=== PATIENT | female | born 1955 | race Caucasian/White ===

== ENCOUNTER → 2022-03-23 | Outpatient (CLI) | payer MEDICARE ==
--- NOTE | 2022-03-23 14:29 | Diagnostic Imaging Report ---
PROCEDURE: CT urinary tract, rule out kidney stone. TECHNIQUE: Multiple contiguous axial images were obtained through the abdomen and pelvis without the use of intravenous contrast. Auto Exposure Controls were utilized during the CT exam to meet ALARA standards for radiation dose reduction. INDICATION: Right flank pain and hematuria. Patient has history of kidney stones. No prior studies are available for comparison. FINDINGS: Lung bases are clear of acute infiltrates. The liver and gallbladder are unremarkable. No biliary duct dilatation is seen. The pancreas and spleen are unremarkable. No adrenal mass is detected. There is a punctate nonobstructing calculus in the upper pole of the left kidney. Right kidney contains several nonobstructing calculi, largest in the lower pole measuring 8 mm. No definite ureteral calculi or hydronephrosis is identified. Aorta is heavily calcified but nonaneurysmal. Bowel loops are normal in caliber. There is no obstruction. There is diverticulosis of the sigmoid, but no evidence of acute diverticulitis. No free fluid or fluid collection is seen. No inflammatory changes are identified. The uterus and bladder are unremarkable. IMPRESSION: 1. Nonobstructing bilateral nephrolithiasis with the greatest stone burden in the right kidney. No ureteral calculi or hydronephrosis is detected. 2. Uncomplicated diverticulosis. Dictated by: Dictated on workstation # [id number]
== END ==
LOC: RAD FS 12:55
PROVIDERS: ATTEND Family Medicine
DX: N20.0 Calculus of kidney (principal); K57.30 Diverticulosis of large intestine without perforation or abscess without bleeding
CPT/HCPCS: 74176

== ENCOUNTER 2022-04-11 05:35 | Outpatient (CLI) | payer MEDICARE ==
[~2022-04-11] VITALS: Ht 160 cm; Wt 50.0 kg
[2022-04-11] MEDS ORDERED: ALEN70TA80 PO (13:53)
[2022-04-11] MEDS ORDERED: ATOR40TA70 PO (13:53)
[2022-04-11] MEDS ORDERED: CHOL200074 PO (13:53)
[2022-04-11] MEDS ORDERED: FOLI0.4T6 PO (13:53)
[2022-04-11] MEDS ORDERED: ASCO100024 PO (13:53)
[2022-04-11] MEDS ORDERED: MAGN250T13 PO (13:53)
== END 2022-04-11 13:45 | disposition home or self-care (01) ==
LOC: PREOP 05:35
PROVIDERS: ATTEND Urology
DX: Z01.818 Encounter for other preprocedural examination (principal)

== ENCOUNTER 2022-04-17 06:07 | Day surgery (SDC) | payer MEDICARE ==
[~2022-04-17] VITALS: Ht 160 cm; Wt 50.0 kg
[2022-04-17] VITALS (11 sets, daily range): BP systolic 134–164; BP diastolic 68–89
[~2022-04-17 06:07] MED LIST: ALEN70TA80 PO; ASCO100024 PO; ATOR40TA70 PO; CHOL200074 PO; FOLI0.4T6 PO; MAGN250T13 PO
[2022-04-17] MEDS ORDERED: cefTRIAXone 1 GM PRE-MIX 50 ML IV ONE (06:30)
[2022-04-17] MEDS: LACTATED RINGERS 1,000 ML IV PRN ×2 (06:44→09:27)
[2022-04-17] MEDS ORDERED: MIDAZOLAM 2 MG/2 ML (VERSED) VIAL IVP ONE (07:15)
--- NOTE | 2022-04-17 07:27 | Progress Note-Pre Operative ---
Pre-Operative Progress Note Date of Available H&P: Apr 17, 2022 Date H&P Reviewed: Apr 17, 2022 Time H&P Reviewed: 07:27 Changes from last HP NONE Pre-Operative Diagnosis: RT RENAL STONE BHUMI BENNETT MD Apr 17, 2022 07:27
--- NOTE | 2022-04-17 07:31 | Progress Note-Post Operative ---
Post-Operative Progess Note Surgeon (s)/Correction Officer Penitentiary (s) Surgeon BHUMI BENNETT MD Correction Officer Penitentiary: NONE Pre-Operative Diagnosis RT RENAL STONE Post-Operative Diagnosis SAME Procedure & Operative Findings Date of Procedure 04/17/22 Procedure Performed/Findings RT ESWL Anesthesia Type GENERAL Estimated Blood Loss Estimated blood loss (mL): NONE Specimens/Packing Specimens Removed NONE Packing: NONE BHUMI BENNETT MD Apr 17, 2022 07:31
--- NOTE | 2022-04-17 07:33 | Discharge Inst-Urology ---
Discharge Inst-Urology Reconcile Patient Problems Problems Reviewed?: Yes Final Diagnosis RT RENAL STONE Patient Instructions/Follow Up Plan/Assessment/Instructions Please make appointment to been seen in office Monday 04/30, KUB prior to it. KUB on way home Post ESWL instructions Increase oral fluids for 48 hours and then as needed. Diet and Activity as tolerated. If questions or concerns contact your physician Or seek help at emergency department. BHUMI BENNETT MD Apr 17, 2022 07:33
--- NOTE | 2022-04-17 07:37 | Diagnostic Imaging Report ---
INDICATION: Nephrolithiasis-ESWL. TECHNIQUE: Single radiograph of the abdomen 6:23 AM CORRELATION STUDY: CT abdomen and pelvis 03/23/2022 FINDINGS: Approximately 1 cm calcification over the right renal silhouette. No definitive calcification over the left renal silhouette and/or expected course of either ureter. Moderate amount of overlying bowel gas and stool does obscure detail. IMPRESSION: 1. Approximately 1 cm calcification superimposed over the right renal silhouette. Dictated by: Dictated on workstation # [id number]
[2022-04-17] MEDS ORDERED: ONDANSETRON 4 MG/2 ML (SDV) Z0FRAN ONE (08:20)
[2022-04-17] MEDS ORDERED: fentaNYL INJ 100 MCG/2 ML AMP ONE (08:20)
[2022-04-17] MEDS ORDERED: proPOfol 200 MG/20 ML (DIPRIVAN) VIAL IV ONE (08:20)
[2022-04-17] MEDS ORDERED: LIDOCAINE PF 2% 5 ML (XYLOCAINE) VIAL ONE (08:20)
[2022-04-17] MEDS ORDERED: TMSL.4C PO (08:37)
[2022-04-17] MEDS ORDERED: KETO10TA PO (08:37)
[2022-04-17] MEDS ORDERED: NITR-65 PO (08:37)
[2022-04-17] MEDS ORDERED: SEVOFLURANE (ULTANE) 15 ML INHAL SOLN ONE (09:09)
[2022-04-17] MEDS ORDERED: KETOROLAC 30 MG/ML VIAL ONE (09:09)
[2022-04-17] MEDS ORDERED: FUROSEMIDE 40 MG/4 ML INJ (LASIX) ONE (09:09)
[2022-04-17] MEDS ORDERED: morphine INJ 10 MG/ML 1ML (SYR OR VIAL) IVP ONE (09:45)
[2022-04-17] MEDS ORDERED: ONDANSETRON 4 MG/2 ML (SDV) Z0FRAN IVP PRN (09:45)
--- NOTE | 2022-04-17 10:42 | Anesthesia-General Post-Op ---
General Patient Condition Mental Status/LOC: Same as Preop Cardiovascular: Satisfactory Nausea/Vomiting: Absent Respiratory: Satisfactory Pain: Controlled Complications: Absent Post Op Complications Complications None Follow Up Care/Instructions Patient Instructions None needed. Anesthesia/Patient Condition Patient Condition Patient was doing well in PACU with no complaints, stable vital signs, no apparent adverse anesthesia problems. No complications reported per nursing. SKIP HELTON DO Apr 17, 2022 10:42
[2022-04-17] MEDS ORDERED: ACETAMINOPHEN 500 MG TAB (TYLENOL) PO ONE (11:00)
--- NOTE | 2022-04-17 11:54 | Diagnostic Imaging Report ---
INDICATION: Post lithotripsy, renal stones COMPARISON: Imaging from same date TECHNIQUE: Single radiograph of abdomen dated 04/17/2022 at 11:38 AM FINDINGS: Previously noted near 1 cm calcification overlying the right renal shadow is no longer visualized. No new suspicious calcifications. Nonobstructive bowel gas pattern. No free air. Osseous structures appear stable. IMPRESSION: Previously noted suspected stone overlying the right renal shadow is no longer visualized. Dictated by: Dictated on workstation # [id number]
--- NOTE | 2022-04-17 19:12 | OPERATIVE REPORT ---
DATE OF SERVICE: 04/17/2022 PREOPERATIVE DIAGNOSIS: Right renal stone. POSTOPERATIVE DIAGNOSIS: Right renal stone. OPERATION PERFORMED: Right ESWL. SURGEON: Jus Bennett MD. ANESTHESIA: General. COMPLICATIONS: None. DESCRIPTION OF PROCEDURE: Under satisfactory general anesthesia, the patient in supine position on the ESWL table, the right renal stone was localized. Shocks were delivered at a kV of 4 and we had to slow it down because of some PVCs and was able to complete the procedure and was no problem. A total of 2500 shocks completely fragmented the stone that was hardly visualized. The patient received 30 mg of Toradol and 40 mg of Lasix at the end of the procedure. She tolerated the procedure and anesthesia well and was sent to recovery room in stable condition. Job ID: [id number] DocumentID: [id number] Dictated Date: 04/17/2022 09:18:15 Director Clinical Pharmacology Date: 04/17/2022 19:10:00 Dictated By: JUS BENNETT MD
== END 2022-04-17 11:40 | disposition home or self-care (01) ==
LOC: SDC 06:07
PROVIDERS: ATTEND Urology
DX: N20.0 Calculus of kidney (principal); F17.210 Nicotine dependence, cigarettes, uncomplicated; M81.0 Age-related osteoporosis without current pathological fracture
CPT/HCPCS: 74018; 87081

== ENCOUNTER → 2022-04-30 | Outpatient (CLI) | payer MEDICARE ==
[~2022-04-30] MED LIST changes: +KETO10TA PO; +NITR-65 PO; +TMSL.4C PO
--- NOTE | 2022-04-30 16:08 | Diagnostic Imaging Report ---
INDICATION: Status post ESWL. History of renal calculi. COMPARISON: 04/17/2022. FINDINGS: Single frontal radiographic view of the chest was obtained. Small bowel loops are nondilated. There is no large collection of free intraperitoneal air. Qeiq-jj-gdgtwvak colonic air and stool is noted. No unexpected extraosseous calcifications or radiopaque foreign bodies are seen. Osseous structures show no gross acute abnormalities. IMPRESSION: 1. Nonobstructed small bowel gas pattern. 2. Uiue-gs-upbycogj colonic air and stool. Please correlate for constipation. Dictated by: Dictated on workstation # [id number]
== END ==
LOC: RAD 13:22
PROVIDERS: ATTEND Urology
DX: N20.0 Calculus of kidney (principal); Z98.890 Other specified postprocedural states
CPT/HCPCS: 74018

== ENCOUNTER 2022-07-16 16:13 | Emergency (ER) | payer MEDICARE ==
[~2022-07-16] VITALS: Ht 160 cm; Wt 50.8 kg
[2022-07-16] MEDS ORDERED: KETOROLAC 30 MG/ML VIAL IVP ONE (16:30)
[2022-07-16] MEDS ORDERED: fentaNYL INJ 100 MCG/2 ML AMP IVP ONE ×2 (16:30→17:30)
[2022-07-16] MEDS ORDERED: NS IV 1000 ML 1,000 ML IV SCH (16:30)
[2022-07-16 16:40] LABS: BASOPHILS # (AUTO) 0.1 10^3/uL (0.0-0.1); BASOPHILS % (AUTO) 1 % (0-10); EOSINOPHILS # (AUTO) 0.1 10^3/uL (0.0-0.3); EOSINOPHILS % (AUTO) 1 % (0-10); HEMATOCRIT 47 % (35-52); HEMOGLOBIN 15.7 g/dL (11.5-16.0); LYMPHOCYTES # (AUTO) 2.9 10^3/uL (1.0-4.0); LYMPHOCYTES % (AUTO) 22 % (12-44); MEAN CORPUSCULAR HEMOGLOBIN 30 pg (25-34); MEAN CORPUSCULAR HGB CONC 34 g/dL (32-36); MEAN CORPUSCULAR VOLUME 88 fL (80-99); MEAN PLATELET VOLUME 9.6 fL (9.0-12.2); MONOCYTES # (AUTO) 0.9 10^3/uL (0.0-1.0); MONOCYTES % (AUTO) 7 % (0-12); NEUTROPHILS # (AUTO) 8.9 10^3/uL (1.8-7.8); NEUTROPHILS % (AUTO) 69 % (42-75); PLATELET COUNT 277 10^3/uL (130-400); WHITE BLOOD COUNT 12.9 10^3/uL (4.3-11.0)
[2022-07-16 16:52] LABS: BILIRUBIN,URINE NEGATIVE (NEGATIVE); CLARITY,URINE CLEAR; COLOR,URINE YELLOW; GLUCOSE, URINE (UA) NEGATIVE (NEGATIVE); KETONES,URINE NEGATIVE (NEGATIVE); LEUKOCYTE ESTERASE ,URINE NEGATIVE (NEGATIVE); NITRITE,URINE NEGATIVE (NEGATIVE); PROTEIN,URINE NEGATIVE (NEGATIVE)
--- NOTE | 2022-07-16 16:53 | Diagnostic Imaging Report ---
PROCEDURE: CT abdomen and pelvis without contrast. TECHNIQUE: Multiple contiguous axial images were obtained through the abdomen and pelvis without the use of intravenous contrast. Auto Exposure Controls were utilized during the CT exam to meet ALARA standards for radiation dose reduction. DATE: July 16, 2022. COMPARISON: Abdominal radiograph April 30, 2022. CT abdomen and pelvis March 23, 2022. INDICATION: 66-year-old female, left flank pain. History of prior renal stones. FINDINGS: There are limitations for evaluation of the abdominal organs, neoplastic processes, abscess, and limited evaluation of the vasculature relating to the lack of intravenous contrast. There is very mild atelectasis and/or scarring in the right and left lower lobes. The heart is not enlarged. There is no sizable pericardial effusion. The liver is unremarkable in size and contour. There is no identified liver lesion. The gallbladder is grossly unremarkable. There is no identified biliary ductal dilation. Noncontrast evaluation of the pancreatic parenchyma is unremarkable. The spleen is normal in size. The adrenal glands are unremarkable. There are nonobstructing renal stones bilaterally. The urinary collecting systems are not distended. There is no identified ureteral stone. The urinary bladder is unremarkable. There is diverticulosis without evidence of acute diverticulitis. There is no free intraperitoneal air. The appendix is unremarkable. There is no drainable fluid collection. There is no free fluid in the abdomen or pelvis. There are atherosclerotic calcifications. There is no identified abnormally enlarged lymph node in the abdomen or pelvis which meets CT size criteria for adenopathy. There are multilevel degenerative changes of the spine. There is no identified acute bony abnormality. IMPRESSION: CT ABDOMEN AND PELVIS. 1. Nonobstructing renal stones bilaterally without identified ureteral stone or hydronephrosis. 2. No identified acute abnormality in the abdomen or pelvis. 3. Diverticulosis without evidence of acute diverticulitis. Dictated by: Dictated on workstation # [id number]
[2022-07-16 16:57] LABS: BACTERIA,URINE NEGATIVE /HPF; RBC,URINE 0-2 /HPF; SQUAMOUS EPITHELIAL CELL,UR 0-2 /HPF; WBC,URINE RARE /HPF
[2022-07-16 17:04] LABS: POTASSIUM 4.3 MMOL/L (3.6-5.0); SODIUM 141 MMOL/L (135-145)
[2022-07-16 17:05] LABS: ALANINE AMINOTRANSFERASE 13 U/L (0-55); ALKALINE PHOSPHATASE 77 U/L (40-136); BILIRUBIN,TOTAL 0.4 MG/DL (0.1-1.0); BUN/CREATININE RATIO 22; CALCIUM 9.6 MG/DL (8.5-10.1); CARBON DIOXIDE 25 MMOL/L (21-32); CHLORIDE 103 MMOL/L (98-107); GFR ESTIMATED 70; GLUCOSE 104 MG/DL (70-105); TOTAL PROTEIN 7.5 GM/DL (6.4-8.2)
[2022-07-16 17:06] LABS: ALBUMIN 4.7 GM/DL (3.2-4.5)
--- NOTE | 2022-07-16 17:37 | ED GU-Female ---
General Chief Complaint: - Reproductive Stated Complaint: KIDNEY STONE, PAIN W URINATION, PAIN LWR LEFT SIDE Nursing Triage Note: PT AMBULATE TO ROOM FS02 WITHOUT DIFFICULTY WITH C/O LEFT FLANK PAIN. PT SENT FROM PCP. PT SEEN IN THIS ED IN MARCH FOR KIDNEY STONES. Source: patient, family Exam Limitations: no limitations History of Present Illness Date Seen by Provider: Jul 16, 2022 Time Seen by Provider: 16:20 Initial Comments Patient is a 66-year-old female with history of recurrent kidney stones who presents with left flank pain for the past 3 days. Patient was evaluated by her PCP and referred to the emergency department for additional management. Urine sample performed prior to ED arrival showed moderate hematuria. Patient denies fever chills nausea vomiting or sweats. Flank pain is moderate to severe worse with palpation and twisting and movement. Patient also reports pain over her tailbone, which she attributes to sitting. Patient did take hydrocodone this past weekend with moderate relief. She denies chest pain abdominal pain, constipation or diarrhea. No other acute symptoms or complaints Timing/Duration: other Severity/Quality: other Location: other Radiation: other Activities at Onset: other Sexual [place] History: other Modifying Factors: Improves With Other Associated Symptoms: other Allergies and Home Medications Allergies Uncoded Allergies: LAXATIVES (Adverse Reaction, Unknown, 04/11/22) Patient Home Medication List Home Medication List Reviewed: Yes Alendronate Sodium (Alendronate Sodium) 70 Mg Tablet, 70 MG PO WEEKLY, (Reported) Entered as Reported by: ALAN TORRES on 04/11/22 1353 Ascorbic Acid (Vitamin C) 1,000 Mg Tablet, 1,000 MG PO UD, (Reported) Entered as Reported by: ALAN TORRES on 04/11/22 1353 Atorvastatin Calcium (Atorvastatin Calcium) 40 Mg Tablet, 40 MG PO DAILY, (Reported) Entered as Reported by: ALAN TORRES on 04/11/22 1353 Cholecalciferol (Vitamin D3) (Vitamin D3) 50 Mcg (2000 Unit) Capsule, 50 MCG PO UD, (Reported) Entered as Reported by: ALAN TORRES on 04/11/22 135 Folic Acid (Folic Acid) 0.4 Mg Tablet, 0.4 MG PO UD, (Reported) Entered as Reported by: ALAN TORRES on 04/11/22 1353 Ketorolac Tromethamine (Ketorolac Tromethamine) 10 Mg Tablet, 10 MG PO Q4H Prescribed by: NATALEE LINK on 04/17/22 0837 Magnesium Oxide (Magnesium) 250 Mg Tablet, 250 MG PO UD, (Reported) Entered as Reported by: ALAN TORRES on 04/11/22 1353 Nitrofurantoin Monohyd/M-Cryst (Macrobid 100 mg Capsule) 100 Mg Capsule, 1 TAB PO BID WITH MEALS Prescribed by: NATALEE LINK on 04/17/22 0837 Tamsulosin HCl (Flomax) 0.4 Mg Cap, 0.4 MG PO DAILY Prescribed by: NATALEE LINK on 04/17/22 0837 Review of Systems Review of Systems Constitutional: see HPI EENTM: see HPI Respiratory: see HPI Cardiovascular: see HPI Gastrointestinal: see HPI Genitourinary: see HPI Musculoskeletal: see HPI Skin: see HPI Psychiatric/Neurological: See HPI Endocrine: No Symptoms Reported Hematologic/Lymphatic: See HPI Past Jcxejub-Svcpyw-Nbcxyv Hx Patient Social History Tobacco Use?: No Tobacco type used: Cigarettes Smoking Status: Current Everyday Smoker Smokeless Tobacco Frequency: Never a User Use of E-Cig and/or Vaping dev: No Use of E-Cig and/or Vaping Prosper: Never a User Substance use?: No Alcohol Use?: No Pt feels they are or have been: No Immunizations Up To Date First/Initial COVID19 Vaccinat: 2020 Second COVID19 Vaccination Javi: 2020 Third COVID19 Vaccination Date: 2020 Seasonal Allergies Seasonal Allergies: Yes Past Medical History Surgeries: Yes (THYROIDECTOMY, KIDNEY STONE ) Respiratory: No Currently Using CPAP: No Currently Using BIPAP: No Cardiac: Yes High Cholesterol Neurological: No Genitourinary: Yes Kidney Stones Gastrointestinal: No Musculoskeletal: Yes (RT SHOULDER PAIN) Arthritis Endocrine: Yes Hypothyroidsim HEENT: Yes (SINUS ALLERGIES, GLASSES) Cancer: Yes Uterine What Type of Treatment Did You: Chemotherapy, Surgical Intervention Psychosocial: Yes Anxiety Integumentary: No Blood Disorders: No Physical Exam Vital Signs Vital Signs - First Documented 07/16/22 16:18 Temp 36.2 Pulse 76 Resp 17 B/P (MAP) 188/75 (112) O2 Delivery Room Air Capillary Refill : Less Than 3 Seconds Height, Weight, BMI Height: '" Weight: lbs. oz. kg; 19.00 BMI Method: General Appearance: WD/WN, mild distress HEENT: PERRL/EOMI (Secondary to pain) Neck: non-tender, full range of motion Cardiovascular: normal peripheral pulses, regular rate, rhythm Respiratory: lungs clear Gastrointestinal: non tender, soft Back: CVA tenderness (L) Extremities: non-tender, normal inspection Neurologic/Psychiatric: alert, oriented x 3 Skin: normal color; No rash Focused Exam Sepsis Stage: Ruled Out Progress/Results/Core Measures Suspected Sepsis SIRS Temperature: Pulse: 76 Respiratory Rate: 17 Laboratory Tests 07/16/22 16:35: White Blood Count 12.9H Blood Pressure 188 /75 Mean: 112 Laboratory Tests 07/16/22 16:35: Creatinine 0.90, Platelet Count 277, Total Bilirubin 0.4 Results/Orders Lab Results Laboratory Tests Test 07/16/22 16:35 07/16/22 16:41 Range/Units White Blood Count 12.9 H 4.3-11.0 10^3/uL Red Blood Count 5.31 H 3.80-5.11 10^6/uL Hemoglobin 15.7 11.5-16.0 g/dL Hematocrit 47 35-52 % Mean Corpuscular Volume 88 80-99 fL Mean Corpuscular Hemoglobin 30 25-34 pg Mean Corpuscular Hemoglobin Concent 34 32-36 g/dL Red Cell Distribution Width 14.9 H 10.0-14.5 % Platelet Count 277 130-400 10^3/uL Mean Platelet Volume 9.6 9.0-12.2 fL Immature Granulocyte % (Auto) 1 % Neutrophils (%) (Auto) 69 42-75 % Lymphocytes (%) (Auto) 22 12-44 % Monocytes (%) (Auto) 7 0-12 % Eosinophils (%) (Auto) 1 0-10 % Basophils (%) (Auto) 1 0-10 % Neutrophils # (Auto) 8.9 H 1.8-7.8 10^3/uL Lymphocytes # (Auto) 2.9 1.0-4.0 10^3/uL Monocytes # (Auto) 0.9 0.0-1.0 10^3/uL Eosinophils # (Auto) 0.1 0.0-0.3 10^3/uL Basophils # (Auto) 0.1 0.0-0.1 10^3/uL Immature Granulocyte # (Auto) 0.1 0.0-0.1 10^3/uL Sodium Level 141 135-145 MMOL/L Potassium Level 4.3 3.6-5.0 MMOL/L Chloride Level 103 98-107 MMOL/L Carbon Dioxide Level 25 21-32 MMOL/L Anion Gap 13 5-14 MMOL/L Blood Urea Nitrogen 20 H 7-18 MG/DL Creatinine 0.90 0.60-1.30 MG/DL Estimat Glomerular Filtration Rate 70 BUN/Creatinine Ratio 22 Glucose Level 104 70-105 MG/DL Calcium Level 9.6 8.5-10.1 MG/DL Corrected Calcium 8.5-10.1 MG/DL Total Bilirubin 0.4 0.1-1.0 MG/DL Aspartate Amino Transf (AST/SGOT) 17 5-34 U/L Alanine Aminotransferase (ALT/SGPT) 13 0-55 U/L Alkaline Phosphatase 77 40-136 U/L Total Protein 7.5 6.4-8.2 GM/DL Albumin 4.7 H 3.2-4.5 GM/DL Urine Color YELLOW Urine Clarity CLEAR Urine pH 6.0 5-9 Urine Specific [place] 1.025 H 1.016-1.022 Urine Protein NEGATIVE NEGATIVE Urine Glucose (UA) NEGATIVE NEGATIVE Urine Ketones NEGATIVE NEGATIVE Urine Nitrite NEGATIVE NEGATIVE Urine Bilirubin NEGATIVE NEGATIVE Urine Urobilinogen 0.2 < = 1.0 MG/DL Urine Leukocyte Esterase NEGATIVE NEGATIVE Urine RBC (Auto) 1+ H NEGATIVE Urine RBC 0-2 /HPF Urine WBC RARE /HPF Urine Squamous Epithelial Cells 0-2 /HPF Urine Crystals NONE /LPF Urine Bacteria NEGATIVE /HPF Urine Casts NONE /LPF Urine Mucus NEGATIVE /LPF Urine Culture Indicated NO My Orders Orders - KANDY SUAREZ DO Cbc With Automated Diff (07/16/22 16:25) Comprehensive Metabolic Panel (07/16/22 16:25) Ua Culture If Indicated (07/16/22 16:25) Ct Abdomen/Pelvis Wo (07/16/22 16:25) Fentanyl Inj (Sublimaze Injection) (07/16/22 16:30) Ketorolac Injection (Toradol Injection) (07/16/22 16:30) Ns Iv 1000 Ml (Sodium Chloride 0.9%) (07/16/22 16:30) Fentanyl Inj (Sublimaze Injection) (07/16/22 17:30) Medications Given in ED Current Medications Medications Dose Ordered Sig/Gwyn Route Start Time Stop Time Status Last Admin Dose Admin Fentanyl Citrate 100 mcg ONCE ONCE IVP 07/16/22 16:30 07/16/22 16:31 DC 07/16/22 16:44 50 MCG Ketorolac Tromethamine 30 mg ONCE ONCE IVP 07/16/22 16:30 07/16/22 16:31 DC 07/16/22 16:43 30 MG Vital Signs/I&O 07/16/22 16:18 Temp 36.2 Pulse 76 Resp 17 B/P (MAP) 188/75 (112) O2 Delivery Room Air Capillary Refill : Less Than 3 Seconds Blood Pressure Mean: 112 Departure Communication (Admissions) CT abdomen pelvis: No acute findings per radiology report Patient with hematuria, leukocytosis without kidney stone or urinary tract infection. Patient's pain does reproduce on exam. There is no rash present suggestive of herpes zoster. Moderate relief with Toradol fentanyl and IV fluids. Recommendation watchful waiting, supportive care and close PCP follow- up. Return precautions reviewed. Patient verbalizes understanding agreement discharge instructions prior to departure. Impression Primary Impression: Left flank pain Additional Impression: Hematuria Disposition: 01 HOME, SELF-CARE Condition: Stable Departure-Patient Inst. Referrals: SELFRADHA MD (PCP) Primary Care Physician Patient Instructions: Flank Pain ED, Blood in Urine (Hematuria), Adult ED Add. Discharge Instructions: You were evaluated in the emergency department for left flank pain and blood in your urine. Lab and imaging studies were performed and are nondiagnostic. The cause of your symptoms has not been determined. Please increase fluids, take ibuprofen for pain and hydrocodone as needed for additional relief. Follow-up with your PCP in 1 to 2 days for reevaluation if symptoms persist. In the meantime if you develop new or worsening symptoms, return to the emergency department. All discharge instructions reviewed with patient and/or family. Voiced understanding. KANDY SUAREZ DO Jul 16, 2022 17:36
[2022-07-16 17:42] VITALS: BP 143/86
== END 2022-07-16 17:42 | disposition home or self-care (01) ==
LOC: EDUNIT# 16:13 → ER FS 16:16
DX: R10.9 Unspecified abdominal pain (principal); R31.9 Hematuria, unspecified; D72.829 Elevated white blood cell count, unspecified; F17.210 Nicotine dependence, cigarettes, uncomplicated; Z87.442 Personal history of urinary calculi
CPT/HCPCS: 36415; 74176; 80053; 81000; 85025

== ENCOUNTER → 2022-08-14 | Outpatient (CLI) | payer MEDICARE ==
--- NOTE | 2022-08-14 11:17 | Diagnostic Imaging Report ---
PROCEDURE: MRI lumbar spine. TECHNIQUE: Multiplanar, multisequence MRI of the lumbar spine was performed without contrast. INDICATION: Lower back pain. History of osteoarthritis. COMPARISON: None FINDINGS: For the purposes of this exam, last well-formed disc space is noted at the L5-S1 level. Static alignment of the lumbar spine is maintained. There is no significant anteroretrolisthesis. There is no evidence of jumped facets. Vertebral body heights are preserved. There is no acute fracture. Marrow signal is normal throughout. There is slight multilevel intervertebral disc height loss. Posterior annular tears are also noted at L4-L5 and L5-S1. Visualized portions of distal cord are unremarkable. Conus terminates at approximately the L1 level. No abnormal intrathecal filling defects are seen. Pre and paravertebral soft tissue structures are unremarkable. Axial images demonstrate the following: T12-L1 and L1-L2: There is no large disc bulge or focal protrusion. There is no significant spinal canal or neuroforaminal stenosis. L2-L3: There is slight broad-based posterior disc bulge and bilateral ligamentum flavum laxity. As a result, there is minimal narrowing of the spinal canal. Neural foramen are unremarkable. L3-L4: There is broad-based posterior disc bulge and bilateral ligamentum flavum laxity and facet arthropathy. As result, there is minimal narrowing spinal canal and bilateral neural foramen. L4-L5: There is broad-based posterior disc bulge and bilateral ligamentum flavum laxity and facet arthropathy. As a result, there is mild narrowing of the spinal canal and bilateral neural foramen. L5-S1: There is broad-based posterior disc bulge with associated endplate osteophyte formations. As a result, there is minimal narrowing of the spinal canal and mild narrowing of bilateral neural foramen. IMPRESSION: 1. Mild multilevel degenerative changes of the lumbar spine as above. 2. No acute fracture or dislocation. Dictated by: Dictated on workstation # [id number]
== END ==
LOC: RAD 10:15
PROVIDERS: ATTEND Family Medicine
DX: M47.26 Other spondylosis with radiculopathy, lumbar region (principal); M51.16 Intervertebral disc disorders with radiculopathy, lumbar region; M51.17 Intervertebral disc disorders with radiculopathy, lumbosacral region
CPT/HCPCS: 72148

== ENCOUNTER 2023-03-16 02:03 | Emergency (ER) | payer MEDICARE ==
[~2023-03-16] VITALS: Ht 160 cm; Wt 52.1 kg
[2023-03-16 02:05] VITALS: BP 188/68
[2023-03-16] MEDS ORDERED: PROMETHAZINE INJ 25 MG/ML VIAL IVP STA (02:11)
[2023-03-16] MEDS ORDERED: FAMOTIDINE INJ 20MG/2ML VIAL IV STA (02:11)
[2023-03-16] MEDS ORDERED: NS IV 1000 ML 1,000 ML IV SCH (02:15)
--- NOTE | 2023-03-16 02:16 | ED GI ---
General Stated Complaint: FALL Source of Information: Patient, EMS Exam Limitations: No Limitations History of Present Illness Date Seen by Provider: Mar 16, 2023 Time Seen by Provider: 02:03 Initial Comments 67-year-old female with past medical history most notable for hypertension coming in via EMS from home due to several episodes of nonbloody nonbilious vomiting and nonbloody diarrhea. She went to bed normal around 9 PM, woke up in the middle the night feeling nauseous. She feels like every time she vomits, she has an episode of diarrhea she states. Denies any abdominal pain, flank pain, chest pain, pain anywhere, fever, chills, dysuria, vaginal bleeding, vaginal discharge, rash, or any other concerns. EMS gave her 4 mg of Zofran which helped with her nausea. Allergies and Home Medications Allergies Uncoded Allergies: LAXATIVES (Adverse Reaction, Unknown, 04/11/22) Patient Home Medication List Home Medication List Reviewed: Yes Alendronate Sodium (Alendronate Sodium) 70 Mg Tablet, 70 MG PO WEEKLY, (Reported) Entered as Reported by: ALAN TORRES on 04/11/22 1353 Ascorbic Acid (Vitamin C) 1,000 Mg Tablet, 1,000 MG PO UD, (Reported) Entered as Reported by: ALAN TORRES on 04/11/22 1353 Atorvastatin Calcium (Atorvastatin Calcium) 40 Mg Tablet, 40 MG PO DAILY, (Reported) Entered as Reported by: ALAN TORRES on 04/11/22 1353 Cholecalciferol (Vitamin D3) (Vitamin D3) 50 Mcg (2000 Unit) Capsule, 50 MCG PO UD, (Reported) Entered as Reported by: ALAN TORRES on 04/11/22 1353 Folic Acid (Folic Acid) 0.4 Mg Tablet, 0.4 MG PO UD, (Reported) Entered as Reported by: AALN TORRES on 04/11/22 1353 Ketorolac Tromethamine (Ketorolac Tromethamine) 10 Mg Tablet, 10 MG PO Q4H Prescribed by: NATALEE LINK on 04/17/22 0837 Magnesium Oxide (Magnesium) 250 Mg Tablet, 250 MG PO UD, (Reported) Entered as Reported by: ALAN TORRES on 04/11/22 1353 Nitrofurantoin Monohyd/M-Cryst (Macrobid 100 mg Capsule) 100 Mg Capsule, 1 TAB PO BID WITH MEALS Prescribed by: NATALEE LINK on 04/17/22836 Ondansetron (Ondansetron Odt) 4 Mg Tab.rapdis, 4 MG SL Q6H PRN for NAUSEA/VOMITING-1ST LINE Prescribed by: HANNY GIBBONS on 03/16/23308 Promethazine HCl (Promethazine Tablet) 25 Mg Tablet, 25 MG PO Q8H PRN for NAUSEA/VOMITING-2ND LINE Prescribed by: HANNY GIBBONS on 03/16/23308 Tamsulosin HCl (Flomax) 0.4 Mg Cap, 0.4 MG PO DAILY Prescribed by: NATALEE LINK on 04/17/22836 Review of Systems Review of Systems Constitutional: No fever EENTM: No Symptoms Reported Respiratory: No Symptoms Reported Cardiovascular: No Symptoms Reported Gastrointestinal: See HPI Genitourinary: No Symptoms Reported Musculoskeletal: no symptoms reported Skin: no symptoms reported Psychiatric/Neurological: No Symptoms Reported Endocrine: No Symptoms Reported Hematologic/Lymphatic: No Symptoms Reported All Other Systems Reviewed Negative Unless Noted: Yes Past Yqkusdp-Tibsyx-Cuaxmy Hx Patient Social History Tobacco Use?: Yes Tobacco type used: Cigarettes Immunizations Up To Date First/Initial COVID19 Vaccinat: 2020 Second COVID19 Vaccination Javi: 2020 Third COVID19 Vaccination Date: 2020 Seasonal Allergies Seasonal Allergies: Yes Past Medical History Surgeries: Yes (THYROIDECTOMY, KIDNEY STONE ) Respiratory: No Currently Using CPAP: No Currently Using BIPAP: No Cardiac: Yes High Cholesterol Neurological: No Genitourinary: Yes Kidney Stones Gastrointestinal: No Musculoskeletal: Yes (RT SHOULDER PAIN) Arthritis Endocrine: Yes Hypothyroidsim HEENT: Yes (SINUS ALLERGIES, GLASSES) Cancer: Yes Uterine What Type of Treatment Did You: Chemotherapy, Surgical Intervention Psychosocial: Yes Anxiety Integumentary: No Blood Disorders: No Physical Exam Vital Signs Vital Signs - First Documented 03/16/23 02:05 Temp 36.4 Pulse 73 Resp 20 B/P (MAP) 188/68 (108) Pulse Ox 97 O2 Delivery Room Air Capillary Refill : Height/Weight/BMI Height: '" Weight: lbs. oz. kg; 19.00 BMI Method: General Appearance: WD/WN, no apparent distress HEENT: PERRL/EOMI, normal ENT inspection, pharynx normal Neck: non-tender, full range of motion, supple, normal inspection Respiratory: chest non-tender, lungs clear, normal breath sounds, no respiratory distress, no accessory muscle use Cardiovascular: regular rate, rhythm, no edema Gastrointestinal: normal bowel sounds, non tender, soft; No distended, No guarding, No rebound Extremities: normal range of motion, non-tender, normal inspection, no pedal edema, no calf tenderness, normal capillary refill Back: normal inspection, no CVA tenderness Neurologic/Psychiatric: no motor/sensory deficits, alert, normal mood/affect Skin: normal color, warm/dry Progress/Results/Core Measures Results/Orders Lab Results Laboratory Tests Test 03/16/23 02:08 Range/Units White Blood Count 16.8 H 4.3-11.0 10^3/uL Red Blood Count 4.90 3.80-5.11 10^6/uL Hemoglobin 14.8 11.5-16.0 g/dL Hematocrit 45 35-52 % Mean Corpuscular Volume 91 80-99 fL Mean Corpuscular Hemoglobin 30 25-34 pg Mean Corpuscular Hemoglobin Concent 33 32-36 g/dL Red Cell Distribution Width 14.6 H 10.0-14.5 % Platelet Count 304 130-400 10^3/uL Mean Platelet Volume 10.3 9.0-12.2 fL Immature Granulocyte % (Auto) 3 % Neutrophils (%) (Auto) 48 42-75 % Lymphocytes (%) (Auto) 41 12-44 % Monocytes (%) (Auto) 6 0-12 % Eosinophils (%) (Auto) 1 0-10 % Basophils (%) (Auto) 1 0-10 % Neutrophils # (Auto) 8.0 H 1.8-7.8 10^3/uL Lymphocytes # (Auto) 6.9 H 1.0-4.0 10^3/uL Monocytes # (Auto) 1.0 0.0-1.0 10^3/uL Eosinophils # (Auto) 0.2 0.0-0.3 10^3/uL Basophils # (Auto) 0.2 H 0.0-0.1 10^3/uL Immature Granulocyte # (Auto) 0.5 H 0.0-0.1 10^3/uL Neutrophils % (Manual) 56 % Lymphocytes % (Manual) 34 % Monocytes % (Manual) 7 % Eosinophils % (Manual) 3 % Prothrombin Time 11.9 L 12.2-14.7 SEC INR Comment 0.8 0.8-1.4 Activated Partial Thromboplast Time 23 L 24-35 SEC Sodium Level 139 135-145 MMOL/L Potassium Level 3.5 L 3.6-5.0 MMOL/L Chloride Level 100 98-107 MMOL/L Carbon Dioxide Level 25 21-32 MMOL/L Anion Gap 14 5-14 MMOL/L Blood Urea Nitrogen 20 H 7-18 MG/DL Creatinine 1.02 0.60-1.30 MG/DL Estimat Glomerular Filtration Rate 60 BUN/Creatinine Ratio 20 Glucose Level 193 H 70-105 MG/DL Calcium Level 9.1 8.5-10.1 MG/DL Corrected Calcium 8.9 8.5-10.1 MG/DL Magnesium Level 2.1 1.6-2.4 MG/DL Total Bilirubin 0.3 0.1-1.0 MG/DL Aspartate Amino Transf (AST/SGOT) 18 5-34 U/L Alanine Aminotransferase (ALT/SGPT) 12 0-55 U/L Alkaline Phosphatase 86 40-136 U/L C-Reactive Protein < 0.30 <0.50 MG/DL Total Protein 6.8 6.4-8.2 GM/DL Albumin 4.2 3.2-4.5 GM/DL Lipase 38 8-78 U/L Influenza Type A (RT-PCR) Not Detected Not Detecte Influenza Type B (RT-PCR) Not Detected Not Detecte SARS-CoV-2 RNA (RT-PCR) Not Detected Not Detecte My Orders Orders - HANNY GIBBONS MD Ed Iv/Invasive Line Start (03/16/23 02:11) Cbc And Automated Diff (03/16/23 02:11) Comprehensive Metabolic Panel (03/16/23 02:11) Lipase (03/16/23 02:11) Magnesium (03/16/23 02:11) Protime With Inr (03/16/23 02:11) Partial Thromboplastin Time (03/16/23 02:11) Influenza A And B By Pcr (03/16/23 02:11) Crp Fs (03/16/23 02:11) Covid 19 Inhouse Test (03/16/23 02:11) Ns Iv 1000 Ml (Ns Iv 1000 Ml) (03/16/23 02:15) Promethazine Injection (Promethazine I (03/16/23 02:11) Famotidine Injection (Famotidine Injec (03/16/23 02:11) Manual Differential (03/16/23 02:08) Vital Signs/I&O 03/16/23 02:05 Temp 36.4 Pulse 73 Resp 20 B/P (MAP) 188/68 (108) Pulse Ox 97 O2 Delivery Room Air Progress Progress Note : Progress Note 67-year-old female with above history coming in due to nonbloody nonbilious vomiting and nonbloody diarrhea. ABCs were intact and vitals were stable on presentation. Physical exam reassuring including a soft and nontender abdomen. She is not complaining of pain anywhere at this time. An IV was placed and basic labs were obtained and were significant for slightly elevated white blood cell count including elevated lymphocytes, normal creatinine, normal magnesium, potassium 3.5 which is essentially unremarkable, normal lipase, undetectable CRP, and negative flu/COVID testing. She was given Zofran by EMS, Phenergan p.o., and saline as well. On reassessment, she is better, repeat abdominal exam once again reassuring. I do not believe she needs a CT at this time. Likely is infectious in etiology, and most likely viral. I believe she is stable for discharge with outpatient follow-up. She will be sent with prescriptions for nausea medicines. Departure Impression Primary Impression: Vomiting and diarrhea Disposition: HOME, SELF-CARE Condition: Stable Departure-Patient Inst. Decision time for Depature: 03:20 Referrals: SELF,RADHA SAHU (PCP/Family) Primary Care Physician Patient Instructions: Nausea and Vomiting, Adult ED, Diarrhea, Adult ED Add. Discharge Instructions: Your labs point towards a viral illness that is a GI bug causing her vomiting and diarrhea. This likely will take a couple days to improve. Take frequent but small sips of fluids including Pedialyte, Gatorade, or what ever you can keep down. Do not really worry about eating until you are feeling better. Nausea medicines were sent to your pharmacy. Come back to the ER if you have completely black vomit, or pure bright red vomit with nothing else, or if you have black stools. Otherwise, please follow-up with your regular doctor in the next couple of days. Scripts Promethazine HCl (Promethazine Tablet) 25 Mg Tablet 25 MG PO Q8H PRN for NAUSEA/VOMITING-2ND LINE for 4 Days, #12 TAB Prov: HANNY GIBBONS MD 03/16/23 Ondansetron (Ondansetron Odt) 4 Mg Tab.rapdis 4 MG SL Q6H PRN for NAUSEA/VOMITING-1ST LINE for 5 Days, #20 TAB Prov: HANNY GIBBONS MD 03/16/23 HANNY GIBBONS MD Mar 16, 2023 02:16
[2023-03-16 02:34] LABS: BASOPHILS # (AUTO) 0.2 10^3/uL (0.0-0.1); BASOPHILS % (AUTO) 1 % (0-10); EOSINOPHILS # (AUTO) 0.2 10^3/uL (0.0-0.3); EOSINOPHILS % (AUTO) 1 % (0-10); HEMATOCRIT 45 % (35-52); HEMOGLOBIN 14.8 g/dL (11.5-16.0); LYMPHOCYTES # (AUTO) 6.9 10^3/uL (1.0-4.0); LYMPHOCYTES % (AUTO) 41 % (12-44); MEAN CORPUSCULAR HEMOGLOBIN 30 pg (25-34); MEAN CORPUSCULAR HGB CONC 33 g/dL (32-36); MEAN CORPUSCULAR VOLUME 91 fL (80-99); MEAN PLATELET VOLUME 10.3 fL (9.0-12.2); MONOCYTES % (AUTO) 6 % (0-12); NEUTROPHILS % (AUTO) 48 % (42-75); PLATELET COUNT 304 10^3/uL (130-400); WHITE BLOOD COUNT 16.8 10^3/uL (4.3-11.0)
[2023-03-16 03:00] LABS: BILIRUBIN,TOTAL 0.3 MG/DL (0.1-1.0); CALCIUM 9.1 MG/DL (8.5-10.1); CARBON DIOXIDE 25 MMOL/L (21-32); CHLORIDE 100 MMOL/L (98-107); INR 0.8 (0.8-1.4); MAGNESIUM 2.1 MG/DL (1.6-2.4); POTASSIUM 3.5 MMOL/L (3.6-5.0); PROTHROMBIN TIME PATIENT 11.9 SEC (12.2-14.7); SODIUM 139 MMOL/L (135-145); TOTAL PROTEIN 6.8 GM/DL (6.4-8.2)
[2023-03-16 03:01] LABS: LIPASE 38 U/L (8-78)
[2023-03-16 03:06] LABS: ALANINE AMINOTRANSFERASE 12 U/L (0-55); ALBUMIN 4.2 GM/DL (3.2-4.5); ALKALINE PHOSPHATASE 86 U/L (40-136); BUN/CREATININE RATIO 20; CREATININE SERUM 1.02 MG/DL (0.60-1.30); EOSINOPHILS % (MANUAL) 3 %; GFR ESTIMATED 60; GLUCOSE 193 MG/DL (70-105); LYMPHOCYTES % (MANUAL) 34 %; MONOCYTES % (MANUAL) 7 %; NEUTROPHILS % (MANUAL) 56 %
[2023-03-16] MEDS ORDERED: PROM25TA14 PO (03:09)
[2023-03-16] MEDS ORDERED: ONDA4TAB11 SL (03:09)
[2023-03-16] MEDS ORDERED: RX-ONDANSETRON 4 MG ODT (ZOFRAN) PPK #4 PO STA (03:12)
== END 2023-03-16 03:15 | disposition home or self-care (01) ==
LOC: EDUNIT# 02:03 → ER FS 02:04
DX: R19.7 Diarrhea, unspecified (principal); R11.2 Nausea with vomiting, unspecified
CPT/HCPCS: 36415; 80053; 83690; 83735; 85007; 85027; 85610; 85730; 86141; 87636; 96361; 96374; 96375